=== PATIENT | male | born 1975 | race Caucasian/White ===

== ENCOUNTER 2022-06-10 21:47 | Emergency (ER) | payer SELFPAY ==
[2022-06-10] MEDS ORDERED: Lactated Ringers 1,000 ML IV STA ×2 (22:08)
[2022-06-10 22:50] LABS: CARBON DIOXIDE,CO2 22.5 mmol/L (21.0-32.0); POTASSIUM,K 3.9 mmol/L (3.5-5.1)
[2022-06-10] MEDS ORDERED: Insulin Regular, Human 100 Units/ML 10 ML Vial IVPUSH STA (23:04)
[2022-06-10] MEDS ORDERED: Glucagon,Human Recombinant 1 MG Vial IM PRN (23:04)
[2022-06-10] MEDS ORDERED: 50% Dextrose in Water 50 ML Syringe IVPUSH PRN (23:04)
== END 2022-06-11 04:45 | disposition home or self-care (01) ==
LOC: MW.ED 21:47
DX: E11.65 Type 2 diabetes mellitus with hyperglycemia (principal); F17.210 Nicotine dependence, cigarettes, uncomplicated; Z88.2 Allergy status to sulfonamides; Z88.8 Allergy status to other drugs, medicaments and biological substances; Z79.84 Long term (current) use of oral hypoglycemic drugs
CPT/HCPCS: 36415; 71045; 80053; 81003; 82009; 82803; 82947; 83735; 84439; 84443; 84484; 85025; 93005; 96360; 99285; J7120; 93010; 99284; J1815-GY